=== PATIENT | male | born 1955 | race Caucasian/White ===

== ENCOUNTER 2021-04-29 22:30 | Inpatient (IN) | payer BC ==
[~2021-04-29] VITALS: Ht 182.8 cm; Wt 89.0 kg
[2021-04-29] MEDS ORDERED: NORVASC5 MG PO (23:34)
[2021-04-30 02:39] LABS: BILIRUBIN Negative (Negative); BLOOD Negative (Negative); CLARITY Clear (Clear); COLOR Yellow (Yellow); GLUCOSE Negative (Negative); KETONE Negative (Negative); LEUKO ESTERASE Negative (Negative); NITRITE Negative (Negative)
[2021-04-30 06:44] LABS: BASO # 0.1 10*3/uL (0.0-0.1); BASO % 0.8 % (0.0-1.0); EOS # 0.2 10*3/uL (0.0-0.4); EOS % 2.3 % (1.0-4.0); HEMATOCRIT 49.3 % (42.0-52.0); LYMPH # 1.5 10*3/uL (1.3-4.4); LYMPH % 23.3 % (27.0-41.0); MEAN CELL VOLUME 94.1 fl (80.0-94.0); MEAN CORPUSCULAR HGB CONC 31.8 g/dl (33.0-37.0); MEAN PLATELET VOLUME 13.4 fl (9.6-12.3); MONO # 0.6 10*3/uL (0.1-1.0); MONO % 9.6 % (3.0-9.0); NEUT # 4.1 10*3/uL (2.3-7.9); NEUT % 63.7 % (47.0-73.0); PLATELET COUNT AUTOMATED 183 10*3/uL (130-400); RED BLOOD COUNT 5.24 10*6/uL (4.50-5.90); RED CELL DISTRI WIDTH 13.7 % (0-14.5); WHITE BLOOD COUNT 6.5 10*3/uL (4.8-10.8)
[2021-04-30 06:54] LABS: ALBUMIN 3.8 gm/dl (3.1-4.5); BUN 15 mg/dl (7-24); CHLORIDE 110 mmol/L (98-107); CHOLESTEROL 242 mg/dL (<200); CREATININE 1.02 mg/dL (0.70-1.30); SGOT/AST 14 IU/L (3-35); SGPT/ALT 25 U/L (12-78); SODIUM 140 mmol/L (136-145); TRIGLYCERIDES 172 mg/dl (<150)
[2021-04-30 07:05] LABS: ALKALINE PHOSPHATASE 64 U/L (45-117); LDL CHOLESTEROL 165 mg/dL (9-159); TOTAL PROTEIN 7.2 gm/dL (6.4-8.2)
[2021-04-30 07:27] VITALS: BP 146/87
[2021-04-30 08:00] VITALS: BP 146/87
[2021-04-30 20:14] VITALS: BP 125/62; BP 128/87
[2021-05-01 08:02] VITALS: BP 143/79
[2021-05-01 20:00] VITALS: BP 158/80
[2021-05-02 07:41] VITALS: BP 150/78
[2021-05-02 20:00] VITALS: BP 149/93
[2021-05-02 22:39] VITALS: BP 140/88
[2021-05-03 07:54] VITALS: BP 150/98
[2021-05-03] MEDS ORDERED: MIRTAZAPINE15 M2 PO (10:50)
[2021-05-03] MEDS ORDERED: Wellbutrin Sr100 MG PO (10:50)
[2021-05-03] MEDS ORDERED: VITAMIN D3125 MC1 PO (10:50)
[2021-05-03] MEDS ORDERED: ATORVASTATIN CA40 M1 PO (12:29)
== END 2021-05-03 14:30 | disposition home or self-care (01) | DRG 885 ==
LOC: 3N 22:30
PROVIDERS: ADMIT Psychiatry & Neurology Psychiatry; ATTEND Psychiatry & Neurology Psychiatry
DX: F33.9 Major depressive disorder, recurrent, unspecified (principal); R45.851 Suicidal ideations; Z20.822 Contact with and (suspected) exposure to COVID-19; I10 Essential (primary) hypertension; F17.210 Nicotine dependence, cigarettes, uncomplicated; E78.5 Hyperlipidemia, unspecified; Z79.899 Other long term (current) drug therapy